=== PATIENT | male | born 1980 | race Caucasian/White ===

== ENCOUNTER 2018-10-09 15:31 | Emergency (ER) | payer SELFPAY ==
[2018-10-09] MEDS ORDERED: Clindamycin HCl 150 MG Cap PO ONE (15:32)
[2018-10-09] MEDS ORDERED: Take Home: Clindamycin HCl 150 MG Cap, 6 Cap Pack PO ONE (15:50)
--- NOTE | 2018-10-09 15:53 | EDM.PDOC ---
ED HPI GENERAL MEDICAL PROBLEM - General Chief Complaint: Skin Complaint Stated Complaint: "I have a boil" Time Seen by Provider: 10/09/18 15:50 Source of Information: Reports: Patient History Limitations: Reports: No Limitations - History of Present Illness INITIAL COMMENTS - FREE TEXT/NARRATIVE: This patient reports for 4 days having a boil to the buttock crack region. Patient denies villagran, dizziness, n, v, d, f, injury. Reports has had previously before and sometimes open on their own. Onset Date: 10/05/18 Duration: Day(s): (4) Quality: Reports: Sharp Severity: Mild Improves with: Reports: None Worsens with: Reports: Other (sitting on butt) Associated Symptoms: Denies: Confusion, Chest Pain, Cough, cough w sputum, Diaphoresis, Fever/Chills, Headaches, Loss of Appetite, Malaise, Nausea/Vomiting , Rash, Seizure, Shortness of Breath, Syncope, Weakness - Related Data Allergies Allergy/AdvReac Type Severity Reaction Status Date / Time penicillin Allergy Rash Verified 10/09/18 15:39 Home Meds: Home Meds . [No Known Home Meds] 10/09/18 [History] Past Medical History - Past Health History Medical/Surgical History: Denies Medical/Surgical History Other Musculoskeletal History: Neck Surgery 1997 Psychiatric History: Reports: None Other Dermatologic History: Patient has a boil located near coccyx area. Social & Family History - Tobacco Use Smoking Status *Q: Former Smoker Years of Tobacco use: 20 Packs/Tins Daily: 2 Used Tobacco, but Quit: No - Recreational Drug Use Recreational Drug Use: No ED ROS GENERAL - Review of Systems Review Of Systems: See Below Constitutional: Reports: No Symptoms HEENT: Reports: No Symptoms Respiratory: Reports: No Symptoms Cardiovascular: Reports: No Symptoms Endocrine: Reports: No Symptoms GI/Abdominal: Reports: No Symptoms : Reports: No Symptoms Musculoskeletal: Reports: No Symptoms Skin: Reports: Lumps (coccyx region) Neurological: Reports: No Symptoms Psychiatric: Reports: No Symptoms Hematologic/Lymphatic: Reports: No Symptoms Immunologic: Reports: No Symptoms ED EXAM, SKIN/RASH Exam: See Below Exam Limited By: No Limitations General Appearance: Alert, WD/WN, No Apparent Distress Respiratory/Chest: No Respiratory Distress, Lungs Clear, Normal Breath Sounds, No Accessory Muscle Use Cardiovascular: Normal Peripheral Pulses, Regular Rate, Rhythm, No Edema, No Gallop, No JVD, No Murmur, No Rub Peripheral Pulses: 2+: Posterior Tibial (L), Posterior Tibial (R) GI/Abdominal: Normal Bowel Sounds, Soft, Non-Tender, No Organomegaly, No Distention, No Abnormal Bruit, No Mass, Pelvis Stable Extremities: Normal Inspection, Normal Range of Motion, Non-Tender, No Pedal Edema, Normal Capillary Refill Neurological: Alert, Oriented, Normal Cognition, Normal Gait, Normal Reflexes, No Motor/Sensory Deficits Psychiatric: Normal Affect, Normal Mood Skin: Warm, Dry, Intact, Normal Color, Other (abscess to the buttock coccyx area. No fluctulance, not at the skin level, feels mildly deep and hard. ) Location, Skin: Perirectal Associated features: Warmth, Tenderness, Swelling. No: Induration Lymphatic: No Adenopathy Course - Vital Signs Last Recorded V/S: Last Vital Signs Temp 97.9 F 10/09/18 15:52 Pulse 100 10/09/18 15:52 Resp 20 10/09/18 15:52 BP 140/82 10/09/18 15:52 Pulse Ox 97 10/09/18 15:52 - Orders/Labs/Meds Meds: Medications Discontinued Medications Generic Name Dose Route Start Last Admin Trade Name Karen PRN Reason Stop Dose Admin Clindamycin HCl 2 packet 10/09/18 15:50 Take Home: Clindamycin Hcl 150 Mg, 6 Cap Pack PO 10/09/18 15:51 ONETIME ONE Departure - Departure Time of Disposition: 15:52 Disposition: Home, Self-Care 01 Condition: Good Clinical Impression: Abscess - Discharge Information *PRESCRIPTION DRUG MONITORING PROGRAM REVIEWED*: No *COPY OF PRESCRIPTION DRUG MONITORING REPORT IN PATIENT ZULY: No Instructions: Skin Abscess Forms: ED Department Discharge Additional Instructions: Followup with your primary care provider Return to ER for emergencies such as vomiting or fever Warm/Wet compresses to the area No work tomorrow Clindamycin 150mg take 2 pills every 6 hours today and tomorrow #12 take home Clindamycin 300mg 1 pill every 6 hours for another 5 days #20 no refill
[2018-10-09 15:54] VITALS: BP 140/82
== END 2018-10-09 16:10 | disposition home or self-care (01) ==
LOC: CC.ED 15:31
DX: L02.31 Cutaneous abscess of buttock (principal); Z88.0 Allergy status to penicillin; Z87.891 Personal history of nicotine dependence
CPT/HCPCS: 99282; A9270-GY

== ENCOUNTER 2023-05-24 21:53 | Emergency (ER) | payer MEDICAID ==
[2023-05-24] MEDS: Aspirin 81 MG Tab.Chew PO ONE (22:00)
[2023-05-24 22:17] LABS: BASOPHILS ABSOLUTE AUTO 0.04 10^3/uL (0.00-0.50); BASOPHILS PERCENT AUTO 0.4 % (0-1); EOSINOPHILS ABSOLUTE AUTO 0.12 10^3/uL (0.00-1.50); EOSINOPHILS PERCENT AUTO 1.2 % (0-6); HEMATOCRIT 47.3 % (42.0-52.0); HEMOGLOBIN 16.6 g/dL (14.0-18.0); IMMATURE GRAN ABSOLUTE AUTO 0.05 10^3/uL (0.00-0.49); IMMATURE GRAN PERCENT AUTO 0.5 % (0.0-4.9); LYMPHOCYTES ABSOLUTE AUTO 2.82 10^3/uL (0.60-5.00); MEAN CORPUSCULAR HEMOGLOBIN 34.4 pg (27.0-32.0); MEAN CORPUSCULAR HGB CONC 35.1 g/dL (32.0-36.0); MEAN CORPUSCULAR VOLUME 98.1 fL (83.0-97.0); MONOCYTES ABSOLUTE AUTO 1.29 10^3/uL (0.00-1.50); MONOCYTES PERCENT AUTO 12.8 % (0-10); NEUTROPHILS ABSOLUTE AUTO 5.76 x10^3/uL (1.80-8.00); NEUTROPHILS PERCENT AUTO 57.1 % (41-71); PLATELET COUNT,PLT 231 10^3/uL (150-400); RED BLOOD CELL COUNT 4.82 x10^6/uL (4.50-6.00); WHITE BLOOD CELL COUNT,WBC 10.1 10^3/uL (4.0-11.0)
[2023-05-24 22:35] LABS: BILIRUBIN TOTAL 0.3 mg/dL (0.0-1.0); CALCIUM 9.5 mg/dL (8.4-10.1); CREATININE 0.8 mg/dL (0.7-1.3); EST CRCL DRUG DOSING (CG) 133.38 mL/min; MAGNESIUM 2.2 mg/dL (1.8-2.4); POTASSIUM,K 4.2 mEq/L (3.5-5.0); PROTEIN TOTAL,TP 8.2 g/dL (6.4-8.2)
[2023-05-25] MEDS: Ibuprofen 200 MG Tab PO ONE (01:38)
[2023-05-25 01:42] VITALS: BP 113/63; PULSE 92
== END 2023-05-25 01:40 | disposition home or self-care (01) ==
LOC: CC.ED 21:53
DX: R07.81 Pleurodynia (principal); I10 Essential (primary) hypertension; F17.210 Nicotine dependence, cigarettes, uncomplicated; Z88.0 Allergy status to penicillin; Z20.822 Contact with and (suspected) exposure to COVID-19
CPT/HCPCS: 36415; 71045; 80053; 83690; 83735; 84484; 85025; 85379; 93005; 93010; 99284; 99285; A9270-GY; U0002